=== PATIENT | female | born 1960 ===

== ENCOUNTER 2019-04-17 04:13 | Outpatient (CLI) | payer BC | END 2019-04-17 23:59 | disposition home or self-care (01) | LOC: DIABETIC 04:13 | PROVIDERS: ATTEND Family Medicine | DX: E11.9 Type 2 diabetes mellitus without complications (principal); Z79.84 Long term (current) use of oral hypoglycemic drugs | CPT/HCPCS: G0108 ==

== ENCOUNTER 2019-05-24 00:59 | Outpatient (CLI) | payer BC | END 2019-05-24 23:59 | disposition home or self-care (01) | LOC: DIABETIC 00:59 | PROVIDERS: ATTEND Family Medicine | DX: E11.9 Type 2 diabetes mellitus without complications (principal); Z79.84 Long term (current) use of oral hypoglycemic drugs | CPT/HCPCS: G0108 ==